=== PATIENT | female | born 1985 | race Asian ===

== ENCOUNTER 2024-06-28 13:57 | Outpatient (RCR) | payer OTHER, SELFPAY | END 2024-10-26 23:59 | disposition home or self-care (01) | PROVIDERS: Visit Provider Physician Assistant Surgical | DX: M22.2X2 Patellofemoral disorders, left knee (principal); M25.562 Pain in left knee; R26.89 Other abnormalities of gait and mobility; Z51.89 Encounter for other specified aftercare | CPT/HCPCS: 97110; 97162 ==